=== PATIENT | female | born 1950 | race Caucasian/White ===

== ENCOUNTER → 2024-12-01 12:55 | Outpatient (REF) | payer MEDICARE, SELFPAY | LOC: HWRCS 12:55 | PROVIDERS: ATTENDING PHYSICIAN Nurse Practitioner Family | DX: R06.09 Other forms of dyspnea (principal) | CPT/HCPCS: 93306 ==

== ENCOUNTER → 2024-12-08 09:46 | Outpatient (REF) | payer MEDICARE, SELFPAY | LOC: RCS 09:46 | PROVIDERS: ATTENDING PHYSICIAN Nurse Practitioner Family | DX: R06.9 Unspecified abnormalities of breathing (principal); R06.02 Shortness of breath | CPT/HCPCS: 93017 ==